=== PATIENT | male | born 1980 | race Caucasian/White ===

== ENCOUNTER 2016-11-14 18:45 | Emergency (ER) | payer BC ==
[2016-11-14 19:11] VITALS: O2SAT 99
[2016-11-14] MEDS ORDERED: Sodium Chloride 0.9% 1000 ML 1,000 ML IV STA ×2 (19:25→20:44)
[2016-11-14] MEDS ORDERED: MORPHINE SULFATE 2 MG INJ IV ONE ×2 (19:25→21:05)
--- NOTE | 2016-11-14 19:28 | ERPHSYRPT ---
- History of Present Illness Time Seen by Provider: 11/14/16 19:27 Historian: patient, family Exam Limitations: no limitations Patient Subjective Stated Complaint: pt states he has been having pain in his lt side radiating to lt abd since last night Triage Nursing Assessment: pt alert and oreinted, answers questions apptop. pt ambultory with steady gait ntoed. skin pnk warm and dry. respirations nonlabored with lungs cta. abd soft and nontender, bowel sounds present x4 quads. no tenderness noted to lt back. Physician History: pt states he has been having pain in his lt side radiating to lt abd since last night Timing/Duration: yesterday Activities at Onset: none Quality: cramping Abdominal Pain Onset Location: flank (left) Pain Radiation: LLQ Severity of Pain-Max: moderate Severity of Pain-Current: moderate Modifying Factors: Improves With: nothing Associated Symptoms: denies symptoms Previous symptoms: no prior history Allergies/Adverse Reactions: No Known Drug Allergies Allergy (Unverified 11/14/16 19:13) Home Medications: No Home Meds 1 [facility] UD 11/14/16 [History] Hx Tetanus, Diphtheria Vaccination/Date Given: No Hx Influenza Vaccination/Date Given: No Hx Pneumococcal Vaccination/Date Given: No Immunizations Up to Date: No - Review of Systems Constitutional: No Fever, No Chills Eyes: No Symptoms Ears, Nose, & Throat: No Symptoms Respiratory: No Cough, No Dyspnea Cardiac: No Chest Pain, No Edema, No Syncope Abdominal/Gastrointestinal: No Abdominal Pain, No Nausea, No Vomiting, No Diarrhea Genitourinary Symptoms: Flank Pain (left side), No Dysuria Musculoskeletal: No Back Pain, No Neck Pain Skin: No Rash Neurological: No Dizziness, No Focal Weakness, No Sensory Changes Psychological: No Symptoms Endocrine: No Symptoms All Other Systems: Reviewed and Negative - Past Medical History Pertinent Past Medical History: No - Past Surgical History Past Surgical History: No - Social History Smoking Status: Never smoker Exposure to second hand smoke: No Drug Use: none Patient Lives Alone: No - Nursing Vital Signs Nursing Vital Signs: Initial Vital Signs Temperature 98.7 F 11/14/16 19:03 Pulse Rate 75 11/14/16 19:03 Respiratory Rate 18 11/14/16 19:03 Blood Pressure 126/80 11/14/16 19:03 O2 Sat by Pulse Oximetry 99 11/14/16 19:03 Pain Scale Pain Intensity 7 - Physical Exam General Appearance: no apparent distress, alert Eye Exam: PERRL/EOMI, eyes nml inspection Ears, Nose, Throat Exam: normal ENT inspection, pharynx normal, moist mucous membranes Neck Exam: normal inspection, non-tender, supple, full range of motion Respiratory Exam: normal breath sounds, lungs clear, No respiratory distress Cardiovascular Exam: regular rate/rhythm, normal heart sounds Gastrointestinal/Abdomen Exam: soft, No tenderness, No mass Back Exam: normal inspection, normal range of motion, No CVA tenderness, No vertebral tenderness Extremity Exam: normal inspection, normal range of motion, pelvis stable Neurologic Exam: alert, oriented x 3, cooperative, normal mood/affect, nml cerebellar function, sensation nml, No motor deficits Skin Exam: normal color, warm, dry SpO2: 99 Oxygen Delivery: Room Air - Course Nursing assessment & vital signs reviewed: Yes - CT Exams Abdomen/Pelvis CT Interpretation: Tele-radiologist Report Ordered Tests: Active Orders 24 hr Category Date Time Status Clean Catch Urine Specimen STAT Care 11/14/16 20:13 Active ABDOMEN AND PELVIS W/0 CONTRAS [CT] Stat Exams 11/14/16 19:25 Taken AMYLASE Stat Lab 11/14/16 20:37 Completed BMP Stat Lab 11/14/16 19:49 Completed CBC W DIFF Stat Lab 11/14/16 19:49 Completed LIPASE Stat Lab 11/14/16 20:37 Completed UA W/ MICROSCOPIC Stat Lab 11/14/16 20:15 Completed Medication Summary Generic Name Dose Route Start Last Admin Trade Name Freq PRN Reason Stop Dose Admin Sodium Chloride 1,000 mls @ 999 mls/hr 11/14/16 20:44 11/14/16 20:46 Sodium Chloride 0.9% 1000 Ml IV 11/14/16 21:44 999 mls/hr .Q1H1M STA Administration Discontinued Medications Generic Name Dose Route Start Last Admin Trade Name Freq PRN Reason Stop Dose Admin Sodium Chloride 1,000 mls @ 999 mls/hr 11/14/16 19:25 11/14/16 19:46 Sodium Chloride 0.9% 1000 Ml IV 11/14/16 20:25 999 mls/hr .Q1H1M STA Administration Sodium Chloride Confirm 11/14/16 19:45 Sodium Chloride 0.9% 1000 Ml Administered 11/14/16 19:46 Dose 1,000 mls @ ud .ROUTE .STK-MED ONE Ceftriaxone Sodium/Dextrose 1 g in 50 mls @ 100 mls/hr 11/14/16 20:09 20:15 Rocephin 1 Gm-D5w 50 Ml Bag IV 11/14/16 20:38 100 mls/hr STAT STA Administration Ceftriaxone Sodium/Dextrose Confirm 11/14/16 20:14 Rocephin 1 Gm-D5w 50 Ml Bag Administered 11/14/16 20:15 Dose 1 g in 50 mls @ ud IV .STK-MED ONE Sodium Chloride Confirm 11/14/16 20:38 Sodium Chloride 0.9% 1000 Ml Administered 11/14/16 20:39 Dose 1,000 mls @ ud .ROUTE .STK-MED ONE Morphine Sulfate 2 mg 11/14/16 19:25 11/14/16 19:47 Morphine Sulfate 2 Mg Inj IV 11/14/16 19:26 2 mg STAT ONE Administration Morphine Sulfate Confirm 11/14/16 19:45 Morphine Sulfate 2 Mg Inj Administered 11/14/16 19:46 Dose 2 mg .ROUTE .STK-MED ONE Lab/Rad Data: Laboratory Result Diagrams 11/14/16 19:49 11/14/16 19:49 Laboratory Results 11/14/16 11/14/16 11/14/16 Range/Units 20:37 20:15 19:49 WBC (4.0-10.5) K/mm3 RBC (4.1-5.6) M/mm3 Hgb (12.5-18.0) gm/dl Hct (42-50) % MCV (78-100) fl MCH (26-32) pg MCHC (32-36) g/dl RDW (11.5-14.0) % Plt Count (150-450) K/mm3 MPV (6-9.5) fl Gran % (36.0-66.0) % Lymphocytes % (24.0-44.0) % Monocytes % (0.0-12.0) % Eosinophils % (0.00-5.0) % Basophils % (0.0-0.4) % Basophils # (0-0.4) Sodium 138 (136-145) mEq/L Potassium 4.0 (3.5-5.1) mEq/L Chloride 101 (98-107) mEq/L Carbon Dioxide 26.7 (21-32) mEq/L Anion Gap 14.0 (5-15) MEQ/L BUN 12 (9-20) mg/dL Creatinine 0.97 (0.55-1.30) mg/dl Estimated GFR > 60 ML/MIN Glucose 129 H (70-110) MG/DL Calcium 9.4 (8.5-10.1) mg/dL Amylase 30 (25-115) U/L Lipase 61 L (73-393) U/L Ur Collection Type VOID Urine Color YELLOW (YELLOW) Urine Appearance CLEAR (CLEAR) Urine pH 7.0 (5-6) Ur Specific [place] 1.010 (1.005-1.025) Urine Protein NEGATIVE (Negative) Urine Ketones NEGATIVE (NEGATIVE) Urine Blood TRACE NON-HEM (0-5) Andry/ul Urine Nitrite NEGATIVE (NEGATIVE) Urine Bilirubin NEGATIVE (NEGATIVE) Urine Urobilinogen NORMAL (0-1) mg/dL Ur Leukocyte Esterase NEGATIVE (NEGATIVE) Urine Microscopic RBC 2-5 (0-2) /HPF Urine Microscopic WBC 0-2 (0-5) /HPF Urine Bacteria FEW (NEGATIVE) /HPF Urine Glucose NEGATIVE (NEGATIVE) mg/dL Specimen Received 11/14/16 2000 11/14/16 Range/Units 19:49 WBC 13.9 H (4.0-10.5) K/mm3 RBC 4.69 (4.1-5.6) M/mm3 Hgb 14.1 (12.5-18.0) gm/dl Hct 41.0 L (42-50) % MCV 87.4 (78-100) fl MCH 30.1 (26-32) pg MCHC 34.4 (32-36) g/dl RDW 12.9 (11.5-14.0) % Plt Count 310 (150-450) K/mm3 MPV 10.5 H (6-9.5) fl Gran % 80.9 H (36.0-66.0) % Lymphocytes % 10.9 L (24.0-44.0) % Monocytes % 7.7 (0.0-12.0) % Eosinophils % 0.4 (0.00-5.0) % Basophils % 0.1 (0.0-0.4) % Basophils # 0.02 (0-0.4) Sodium (136-145) mEq/L Potassium (3.5-5.1) mEq/L Chloride (98-107) mEq/L Carbon Dioxide (21-32) mEq/L Anion Gap (5-15) MEQ/L BUN (9-20) mg/dL Creatinine (0.55-1.30) mg/dl Estimated GFR ML/MIN Glucose (70-110) MG/DL Calcium (8.5-10.1) mg/dL Amylase (25-115) U/L Lipase (73-393) U/L Ur Collection Type Urine Color (YELLOW) Urine Appearance (CLEAR) Urine pH (5-6) Ur Specific [place] (1.005-1.025) Urine Protein (Negative) Urine Ketones (NEGATIVE) Urine Blood (0-5) Andry/ul Urine Nitrite (NEGATIVE) Urine Bilirubin (NEGATIVE) Urine Urobilinogen (0-1) mg/dL Ur Leukocyte Esterase (NEGATIVE) Urine Microscopic RBC (0-2) /HPF Urine Microscopic WBC (0-5) /HPF Urine Bacteria (NEGATIVE) /HPF Urine Glucose (NEGATIVE) mg/dL Specimen Received - Progress Progress: improved, pain not gone completely Counseled pt/family regarding: lab results, diagnosis, need for follow-up, rad results - Departure Time of Disposition: 20:55 Departure Disposition: Home Clinical Impression: Acute pancreatitis without infection or necrosis Qualifiers: Pancreatitis type: unspecified pancreatitis type Qualified Code(s): K85.90 - Acute pancreatitis without necrosis or infection, unspecified Condition: Stable Critical Care Time: Yes Critical Care Time(excluding separately billable procedures): 30-74 minutes Referrals: Provider,Unknown [Primary Care Provider] - Instructions: Abdominal Pain-Adult, Pancreatitis Additional Instructions: ABDOMINAL PAIN 1. There are several different causes for abdominal pain, some of which may not be able to be identified on initial examination. 2. The important thing to remember is that bodily functions can change in a short period of time. If you notice any of the following symptoms, return to the emergency department or consult your doctor immediately: A. Worsening pain or no improvement in the next 12 hours. B. Increasing, severe abdominal pain C. Blood in stool D. Black stools E. Persistent vomiting F. Fever or chills or other symptoms You have a mild case of pancreatitis for which cause remain obscure at this point of time, it may be due to your gallbladder problems. So please add engine appointment with your primary care physician, if you do not have one, we will give you few names for the primary care provider's. Please make an appointment and consider getting gallbladder ultrasound as an outpatient. If pain continues or get worse, come back to the emergency room. Prescriptions: Cephalexin Mh 500 mg [Keflex 500 mg] 500 mg PO Q6H #40 capsule Hydrocodon/Ibupr 7.5mg/200mg [Vicoprofen 7.5mg/200mg Tablet] 1 tab PO Q6H # 20 tablet
[2016-11-14] MEDS ORDERED: MORPHINE SULFATE 2 MG INJ ONE ×2 (19:45→21:07)
[2016-11-14] MEDS ORDERED: Sodium Chloride 0.9% 1000 ML 1,000 ML ONE ×2 (19:45→20:38)
[2016-11-14 20:05] LABS: BASOPHIL % 0.1 % (0.0-0.4); Eosinophil % 0.4 % (0.00-5.0); Granulocytes % 80.9 % (36.0-66.0); Lymphocytes % 10.9 % (24.0-44.0); Mean Cell Volume 87.4 fl (78-100); Mean Corpuscular Hemoglobin 30.1 pg (26-32); Mean Platelet Volume 10.5 fl (6-9.5); Monocytes % 7.7 % (0.0-12.0); Platelet Count 310 K/mm3 (150-450); Red Blood Count 4.69 M/mm3 (4.1-5.6); Red Cell Distribution Width 12.9 % (11.5-14.0); White Blood Count 13.9 K/mm3 (4.0-10.5)
[2016-11-14 20:09] LABS: BLOOD UREA NITROGEN 12 mg/dL (9-20); CHLORIDE 101 mEq/L (98-107); Carbon Dioxide 26.7 mEq/L (21-32); Glucose 129 MG/DL (70-110); SODIUM 138 mEq/L (136-145)
[2016-11-14] MEDS ORDERED: ROCEPHIN 1 Gm-D5w 50 ml Bag** 1 G/50 ML IVPB IV STA (20:09)
[2016-11-14] MEDS ORDERED: ROCEPHIN 1 Gm-D5w 50 ml Bag** 1 G/50 ML IVPB IV ONE (20:14)
[2016-11-14 20:22] LABS: ADD URINE CULTURE? NO (NO); Bacteria FEW /HPF (NEGATIVE); Bilirubin NEGATIVE (NEGATIVE); Blood TRACE NON-HEM Ery/ul (0-5); COMPLETE URINE MICROSCOPIC? YES; Collection Type VOID; Glucose NEGATIVE (NEGATIVE); Leukocyte Esterase NEGATIVE (NEGATIVE); WBC 0-2 /HPF (0-5)
[2016-11-14 20:44] LABS: LIPASE 61 U/L (73-393)
[2016-11-14 21:05] VITALS: BP 136/60; PULSE 68
--- NOTE | 2016-11-14 22:18 | XRAY ---
Indication: Left renal colic. Multiple contiguous axial images obtained through the abdomen and pelvis without contrast using renal stone protocol. Comparison: None Lung bases demonstrates mild bibasilar dependent atelectasis. Heart is not enlarged. No renal calculus or evidence for obstructive uropathy in either system. 1.5 cm left mid renal round hypodensity favoring cyst. Noncontrasted stomach and bowel loops appear nonobstructed. Normal appendix. Body of the pancreas demonstrates mild edema with peripancreatic stranding favoring pancreatitis. No free fluid/air. Remaining liver, gallbladder, spleen, adrenal glands, kidneys, ureters, bladder, and aorta appear unremarkable for noncontrast exam. Osseous structures intact. Small well circumscribed sclerotic lesions of S1 and both femur heads favoring bone island. Impression: 1. Negative for renal calculus or evidence for obstructive uropathy. Probable left renal cyst which could be confirmed with ultrasound if clinically warranted. 2. Pancreatic body edema with stranding favoring acute pancreatitis. CTDI 23.68
== END 2016-11-14 21:20 | disposition home or self-care (01) ==
LOC: ED 18:45
DX: K85.90 Acute pancreatitis without necrosis or infection, unspecified (principal); R10.32 Left lower quadrant pain
CPT/HCPCS: 36000; 36415; 74176; 80048; 81000; 82150; 83690; 85025; 96360; 96361; 96365; 96374; 96376; 99284; J0696; J2270

== ENCOUNTER 2022-07-14 19:49 | Emergency (ER) | payer BC ==
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
[2022-07-14] MEDS ORDERED: TORAdol 30 mg Injection IM ONE (21:20)
[2022-07-14] MEDS ORDERED: TORAdol 30 mg Injection ONE (21:22)
[2022-07-14 21:43] VITALS: BP 114/72; PULSE 68; O2SAT 97
--- NOTE | 2022-07-15 08:45 | XRAY ---
Indication: Left forehead injury. Multiple contiguous axial images obtained through the head without contrast. Comparison: None Small left forehead scalp hematoma. Normal appearing brain parenchyma, ventricles, and bony calvarium. Visualized paranasal sinuses and mastoid air cells are clear. Impression: Left forehead scalp hematoma. Normal CT head without contrast exam.
== END 2022-07-14 21:43 | disposition home or self-care (01) ==
LOC: ED 19:49
DX: S09.90XA Unspecified injury of head, initial encounter (principal); V86.55XA Driver of 3- or 4- wheeled all-terrain vehicle (ATV) injured in nontraffic accident, initial encounter; Z79.899 Other long term (current) drug therapy; Z28.310 Unvaccinated for COVID-19
CPT/HCPCS: 70450; 96372; 99283; J1885